=== PATIENT | male | born 1940 | race Caucasian/White ===

== ENCOUNTER → 2023-06-12 07:16 | Outpatient (REF) | payer MEDICARE, SELFPAY | LOC: RCS 07:16 | PROVIDERS: ATTENDING PHYSICIAN Internal Medicine Cardiovascular Disease; FAMILY PHYSICIAN Family Medicine | DX: I10 Essential (primary) hypertension (principal); R06.00 Dyspnea, unspecified | CPT/HCPCS: 93306 ==

== ENCOUNTER 2024-07-05 19:36 | Emergency (ER) | payer MEDICARE, SELFPAY ==
[2024-07-05 19:38] VITALS: BP 178/94
[2024-07-05 20:00] VITALS: BP 159/75
--- NOTE | 2024-07-05 22:02 | ED.GENMED ---
History of Present Illness
General
Chief Complaint: Musculo-Skeletal Complaint
Time Seen by Provider: 07/05/24 22:02
History of Present Illness
History of Present Illness:
TIME OF INITIAL ENCOUNTER: 10:20 PM
HPI: The patient was in the bathroom with his pants down and twisted and then lost his balance and fell. He is prone to falling. He denies striking his head. His main concern is pain at the left shoulder. He denies any other significant injury.
EXAM:
GENERAL: Well appearing in no distress
CERVICAL SPINE: No midline c-spine tenderness with excellent AROM
HEAD: No evidence of craniofacial trauma
CHEST: No chest wall tenderness
ABDOMEN: No abdominal tenderness, no peritoneal signs
EXTREMITIES: Decreased active range of motion at the left shoulder, no significant bony tenderness, there is some tenderness near the left biceps tendon
NEURO: Good strength all extremities, appropriate mental status, normal speech/language
NUMBER AND COMPLEXITY OF PROBLEMS ADDRESSED AT THE ENCOUNTER
� Chronic conditions affecting care: High blood pressure, hyperlipidemia, diabetes, CVA
� Acute Exacerbation and/or Progression of Chronic Illness: This is an acute problem
� Differential Diagnosis includes: Proximal humerus fracture, clavicle fracture, AC joint injury, rotator cuff injury, shoulder contusion
AMOUNT AND/OR COMPLEXITY OF DATA TO BE REVIEWED AND ANALYZED
� I performed an independent evaluation of and my interpretation is:
EKG:
CT:
X-rays: I personally reviewed x-rays and agree with radiologist interpretation that there is no acute fracture
Laboratory Studies:
Other:
� Review of other/old records: I reviewed records, the patient has been to physical therapy following CVA
� Clinical information was obtained by an independent historian: Spoke to at bedside
� Prescriptions/Medications Considered but not given:
� Further testing considered but not performed:
RISK OF COMPLICATIONS AND/OR MORBIDITY OR MORTALITY OF PATIENT MANAGEMENT
� Social determinants of health affecting care: Lives at home
� Discussion with other providers:
� Escalation of care including admission/observation vs risk of discharge considered: X-rays unremarkable. He does have decreased active range of motion. Encouraged him to follow-up with orthopedics�he has seen [facility]
orthopedics in the past. We gave sling however encouraged him to use caution and he could leave it off feels unsteady with the sling. Declines analgesia
ANY OTHER UPDATES:
Past History
Past History
ED Past Medical History: HTN, Hypercholesterolemia and NIDDM
ED Past Surgical History: Orthopedic
Patient has exhibited threatening behavior?: No
Social History
Tobacco: Former smoker
Alcohol: None
Drug: None
Personal:
Living: with family
Phy Exam
Physical Exam
Physical Exam:
See HPI
Course
Orders/Labs/Results
Orders:
Orders
07/05/24 19:40
CR Shoulder - Left Min 2 View* Urgent
Comment:
Reason For Exam: injury
07/05/24 22:39
Sling Left-Treatment ONCE
Vital Signs
Initial and Last Documented VS:
Initial Vital Signs
Temp Pulse Resp BP Pulse Ox
36.7 C 90 20 178/94 98
07/05/24 19:38 07/05/24 19:38 07/05/24 19:38 07/05/24 19:38 07/05/24 19:38
Last Documented Vital Signs
Temp Pulse Resp BP Pulse Ox
36.7 C 84 16 159/75 100
07/05/24 19:38 07/05/24 20:00 07/05/24 20:00 07/05/24 20:00 07/05/24 20:00
*Critical Care Note
Total Time (30-74mins, 75-104mins- exclusive of procedures): Not Applicable
ED Attending Note
-
Portions of this chart may have been created with voice recognition software.� Occasional wrong word or��sound alike� substitutions may have occurred due to the inherent limitations of voice recognition software.
Discharge Plan
Departure
Patient Disposition: Home (Routine Discharge)
Date of Disposition: 07/05/24
Time of Disposition: 22:39
Patient with high blood pressure during this ER visit?: Yes
Discharge Problem:
Injury of left shoulder
Prescriptions:
No Action
metformin 500 MG tablet
500 mg PO BID
aspirin 81 MG tablet,delayed release (DR/EC)
1 tab PO DAILY
lisinopril-hydrochlorothiazide 1 EACH tablet
1 ea PO DAILY
atorvastatin 80 MG tablet
80 mg PO QPM 0RF
clopidogrel 75 MG tablet
75 mg PO DAILY 0RF
Referrals:
Oliver Connor MD [Active] - Follow up in 2-3 days
Activity Restrictions/Additional Instructions:
If symptoms persist, I recommend that you follow-up with orthopedics such as Dr. Connor ([facility] orthopedics). Tylenol is safest for pain. Return here if worse or other concerns.
Interventions
Interventions:
*Risk Screen - Suicide Last Done: 07/05/24 22:16
*General Assessment Last Done: 07/05/24 19:38
*Neglect/Abuse Screening Last Done: 07/05/24 22:16
*ED- Fall Risk Assessment Last Done: 07/05/24 22:16
*Nursing Disposition Last Done: 07/05/24 22:48
ED-Musculoskeletal Assessment Last Done: 07/05/24 22:16
Discharge Date and Time
Discharge Date/Time: 07/05/24 22:55
Print Language: ICELANDIC
== END 2024-07-05 22:55 | disposition home or self-care (01) ==
LOC: EMR 19:36
PROVIDERS: EMERGENCY PHYSICIAN Emergency Medicine; FAMILY PHYSICIAN Family Medicine
DX: S49.92XA Unspecified injury of left shoulder and upper arm, initial encounter (principal); W18.11XA Fall from or off toilet without subsequent striking against object, initial encounter; E11.9 Type 2 diabetes mellitus without complications; E78.00 Pure hypercholesterolemia, unspecified; I10 Essential (primary) hypertension; M19.012 Primary osteoarthritis, left shoulder; Z87.891 Personal history of nicotine dependence
CPT/HCPCS: 99283; 73030